=== PATIENT | female | born 1975 | race Caucasian/White ===

== ENCOUNTER 2019-05-05 14:20 | Emergency (ER) | payer MEDICAID ==
[~2019-05-05] VITALS: Ht 157.5 cm; Wt 71.3 kg
[2019-05-05 15:11] VITALS: BP 108/44
[2019-05-05] MEDS ORDERED: PROPARACAINE OPHTH 0.5%, 15ML EACHEYE ONE (15:30)
[2019-05-05] MEDS ORDERED: FLUORESCEIN OPHTHALMIC 1 MG STRIP EACHEYE ONE (15:30)
--- NOTE | 2019-05-05 16:10 | NUR ---
provider to bedside to perform eye exam
[2019-05-05] MEDS ORDERED: HYDROcodone/APAP 5/325 TABLET PO ONE (16:30)
[2019-05-05] MEDS ORDERED: HYDROcodone/APAP 5/325 TABLET ONE ×2 (16:37→16:42)
[2019-05-05] MEDS ORDERED: FLUORESCEIN OPHTHALMIC 1 MG STRIP ONE (16:37)
--- NOTE | 2019-05-05 16:40 | NUR ---
Medicated per emar Discharged despite recent narcotic admin as patient not naive to narcotic and in the care of family
== END 2019-05-05 16:55 | disposition home or self-care (01) ==
LOC: ED 16:00
DX: S00.212A Abrasion of left eyelid and periocular area, initial encounter (principal); X58.XXXA Exposure to other specified factors, initial encounter; Y93.89 Activity, other specified; Y92.89 Other specified places as the place of occurrence of the external cause; Y99.8 Other external cause status
CPT/HCPCS: 99283; 99284